=== PATIENT | male | born 1945 | race Asian ===

== ENCOUNTER 2017-06-24 00:14 | Inpatient (IN) | payer OTHER ==
[~2017-06-24] VITALS: Ht 165.1 cm; Wt 58.5 kg
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
[2017-06-24 00:30] VITALS: BP 111/72
[2017-06-24] MEDS ORDERED: FLUT1DIS3 (01:57)
[2017-06-24] MEDS ORDERED: CARV12.52 PO (01:57)
[2017-06-24] MEDS ORDERED: FLUT1BLS (01:57)
[2017-06-24] MEDS ORDERED: SERT25TA5 PO (01:57)
[2017-06-24] MEDS ORDERED: SIMV20TA6 (01:57)
[2017-06-24] MEDS ORDERED: DONE10TA44 PO (01:57)
[2017-06-24] MEDS ORDERED: BENA5TAB2 PO (01:57)
[2017-06-24] MEDS ORDERED: RIVA10TA PO (01:57)
[2017-06-24] MEDS ORDERED: ALLO100T PO (01:57)
--- NOTE | 2017-06-24 02:10 | NUR ---
GPSRN REMAINS ASLEEP. CLOSELY WATCHED.
--- NOTE | 2017-06-24 04:12 | NUR ---
GPSRN NO CHANGE FOR NOW. CLOSELY WATCHED.
--- NOTE | 2017-06-24 05:55 | NUR ---
GPSRN RECEIVED CALL FROM SON MICHAEL, UPDATED ON PATIENT'S CONDITION. REVIEWED WITH SON HOME MED LISTS. PROVIDED HOSP NUMBER AND VISITING HOURS. UPDATED CELL NUMBER OF SON, SEE FACE SHEET.
--- NOTE | 2017-06-24 05:55 | NUR ---
GPSRN PER SON PATIENT SPEAKS MANDARIN ONLY. SON WANTED TO SPEAK TO MD TODAY. WILL CALL BACK LATER.
--- NOTE | 2017-06-24 06:25 | NUR ---
GPSRN XENIA RODRIGUEZ CAN BE REACH AT AREA CODE [phone]
[2017-06-24] MEDS ORDERED: PRED5TAB48 PO (06:36)
[2017-06-24 08:00] VITALS: BP 107/70
[2017-06-24 08:12] LABS: ALANINE AMINOTRANSFERASE 23 U/L (12-78); ALBUMIN 3.1 g/dL (3.4-5.0); ALKALINE PHOSPHATASE 36 U/L (46-116); ASPARTATE AMINOTRANSFERASE 30 U/L (15-37); BILIRUBIN,TOTAL 0.8 mg/dL (0.2-1.0); CALCIUM, SERUM 8.6 mg/dL (8.5-10.1); CARBON DIOXIDE 31 mmol/L (21-32); CHLORIDE 108 mmol/L (98-107); CREATININE 0.8 mg/dL (0.6-1.3); GLUCOSE 100 mg/dL (74-106); SODIUM SERUM 144 mmol/L (136-145); TOTAL PROTEIN, SERUM 6.5 g/dL (6.4-8.2); UREA NITROGEN, BLOOD 12 mg/dL (7-18)
[2017-06-24 08:16] LABS: CHOLESTEROL 131 mg/dL (<200); HDL CHOLESTEROL 64 mg/dL (40-60); LDL 50 mg/dL (0-99); TRIGLYCERIDES 104 mg/dL (30-150)
[2017-06-24 16:00] VITALS: BP 123/71
[2017-06-24 20:07] VITALS: BP 105/79
[2017-06-25 08:00] VITALS: BP 127/81
--- NOTE | 2017-06-25 08:00 | NUR ---
DUMBWAITER OPERATOR RECEIVED PT IN BED SLEEPING WAKES UP BY NAME AND TOUCH, PT IS MED COMPLIANT, DENIES ANY PAIN OR DISCOMFORT AT THIS TIME, PT IS CONFUSED IN BED ATE 100% OF BREAKFAST, WILL CONTINUE TO MONITOR, PT DENIES SI, HI, VH,
[2017-06-25 16:00] VITALS: BP 100/63
[2017-06-25 20:34] VITALS: BP 112/67
[2017-06-26 08:00] VITALS: BP 103/68
--- NOTE | 2017-06-26 11:10 | NUR ---
Initial Discharge Note: Patient lives at home with his son and daughter in law [address] [place] [address]. ([phone]). ordnance equipment worker spoke to patient's son Nathan Oviedo ([phone]) who confirmed that patient lives with him and his . Per son, patient can return home upon discharge. ordnance equipment worker will help form a safe and proper discharge.
--- NOTE | 2017-06-26 14:47 | NUR ---
grocery worker spoke to patient's son Nathan Oviedo ([phone]) and informed him that patient is being discharged tomorrow. Patient's son was agreeable with the discharge plan and will pick him up tomorrow between 1:00Pm and 2:00Pm.
--- NOTE | 2017-06-26 14:55 | NUR ---
UR update: tail worker left Denisse ([phone]) a voicemail with an update and informed her that patient will be discharged tomorrow. tail worker will follow-up
[2017-06-26 16:00] VITALS: BP 95/64
[2017-06-26 20:00] VITALS: BP 113/74
[2017-06-27 08:00] VITALS: BP 100/71
[2017-06-27 09:00] VITALS: BP 100/71
--- NOTE | 2017-06-27 13:45 | NUR ---
GPS/RN PT D/C HOME WITH HIS SON MICHAEL CASTRO. NO SI OR HI AT THE TIME OF D/C. PT REFUSED PICTURES ON DISCHARGE. PRESCRIPTIONS/EXIT CARE GIVEN TO SON AND UNDERSTOOD. BELONGINGS RETURNED. LEFT VIA W/C TO THE PRIVATE CAR.
--- NOTE | 2017-06-27 16:07 | NUR ---
Discharge Notes: Patient was discharged home [address] [place] [address]. ([phone]). Patient's son Nathan Oviedo ([phone]) was notified and picked him up via private vehicle. Patient and patient's son were agreeable with the discharge plan. Patient's mood and affect were appropriate upon discharge. Patient denied suicidal and homicidal ideations. Patient and patient's son were provided with a list of psychiatrist within there insurance network: Abilio Santa MD ([phone]), [facility] ([phone]), and [place] [address] ([phone]). Patient's son agreed to have patient follow-up with a psychiatrist within 30 days. Facilitated info to IDT team who are in agreement with discharge arrangement. The multidisciplinary exitcare form was done, printed, signed, and given to the patient.
--- NOTE | 2017-06-27 16:21 | NUR ---
UR update: stock worker left Denisse ([phone]) a voicemail with the discharge summary.
== END 2017-06-27 13:45 | disposition home or self-care (01) | DRG 885 ==
LOC: GPS 00:14
PROVIDERS: ADMIT Psychiatry & Neurology Psychosomatic Medicine; ATTEND Internal Medicine
DX: F29 Unspecified psychosis not due to a substance or known physiological condition (principal); F02.80 Dementia in other diseases classified elsewhere, unspecified severity, without behavioral disturbance, psychotic disturbance, mood disturbance, and anxiety; J44.9 Chronic obstructive pulmonary disease, unspecified; G30.9 Alzheimer's disease, unspecified; F23 Brief psychotic disorder; E11.9 Type 2 diabetes mellitus without complications; E78.5 Hyperlipidemia, unspecified; I10 Essential (primary) hypertension; M10.9 Gout, unspecified; Z79.84 Long term (current) use of oral hypoglycemic drugs; Z95.810 Presence of automatic (implantable) cardiac defibrillator; F01.50 Vascular dementia, unspecified severity, without behavioral disturbance, psychotic disturbance, mood disturbance, and anxiety; Z86.73 Personal history of transient ischemic attack (TIA), and cerebral infarction without residual deficits
CPT/HCPCS: 36415; 70450-TC; 80048-TC; 80053-TC; 80061-TC; 87081-TC; J7512; Z7610